=== PATIENT | male | born 1975 | race Caucasian/White ===

== ENCOUNTER → 2016-06-01 | Outpatient (CLI) | payer OTHER ==
[~2016-06-01] MED LIST: ESCI1TAB9 PO
--- NOTE | 2016-06-01 07:40 | DIAGNOSTIC IMAGING REPORT ---
BILIARY ULTRASOUND CLINICAL HISTORY: R10.13 Epigastric [id number] COMPARISON STUDY: No previous studies for comparison. FINDINGS: The pancreas appears normal as visualized. No hepatic masses are visualized. The gallbladder appears normal. There is no ductal dilatation. There is no right-sided hydronephrosis. There is soft tissue prominence of the renal sinus. While nonspecific this likely represents a prominent column of Terry. IMPRESSION: 1. Probable prominent right renal column of Terry. 2. Otherwise normal biliary ultrasound. Electronically signed by: Gabe Rodriguez M.D. 06/01/2016 7:39 AM Dictated Date/Time: 06/01/2016 7:36 AM
== END | disposition home or self-care (01) ==
LOC: C.ULTR 06:51
PROVIDERS: ATTEND Family Medicine
DX: R10.13 Epigastric pain (principal)

== ENCOUNTER → 2017-10-11 | Outpatient (CLI) | payer OTHER ==
[2017-10-11 13:43] LABS: BLOOD UREA NITROGEN 17 mg/dl (7-18); CALCIUM 8.3 mg/dl (8.5-10.1); CARBON DIOXIDE 25 mmol/L (21-32); CHOLESTEROL 165 mg/dl (0-200); CREATININE 0.95 mg/dl (0.60-1.40); GLUCOSE 97 mg/dl (70-99); LDL CHOLESTEROL CALCULATED 76 mg/dl; POTASSIUM 3.9 mmol/L (3.5-5.1); SODIUM 138 mmol/L (136-145)
== END | disposition home or self-care (01) ==
LOC: C.LABMFLN 08:47
PROVIDERS: ATTEND Family Medicine
DX: Z13.220 Encounter for screening for lipoid disorders (principal); Z13.1 Encounter for screening for diabetes mellitus